=== PATIENT | male | born 1990 | race Caucasian/White ===

== ENCOUNTER 2016-05-09 19:20 | Emergency (ER) | payer BC, OTHER ==
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
[2016-05-09] MEDS ORDERED: DIPH/PERTUSS(ACELL)/TETANUS VAC/PF 0.5 ML SYR (>=10YO) IM ONE (21:47)
[2016-05-09] MEDS ORDERED: TETRACAINE HCL 0.5% OPH SOLN 2 ML OS ONE (21:49)
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
[2016-05-09] MEDS ORDERED: ACETAMINOPHEN 325 MG TABLET PO ONE (22:06)
[2016-05-09 22:49] VITALS: BP 130/90
== END 2016-05-09 22:45 ==
LOC: ER 19:20
DX: S02.2XXA Fracture of nasal bones, initial encounter for closed fracture (principal); S01.112A Laceration without foreign body of left eyelid and periocular area, initial encounter; Y04.2XXA Assault by strike against or bumped into by another person, initial encounter; Y92.149 Unspecified place in prison as the place of occurrence of the external cause; R55 Syncope and collapse; H57.12 Ocular pain, left eye; Z87.891 Personal history of nicotine dependence
CPT/HCPCS: 70450; 70486; 90471; 90715; 99284